=== PATIENT | female | born 2000 | race African-American/Black ===

== ENCOUNTER 2023-04-02 17:04 | Emergency (ER) | payer OTHER ==
[2023-04-02 17:11] VITALS: BP 112/55; PULSE 69; RESP 20; TEMP 98.5; BMI 33.3
== END 2023-04-02 20:40 | disposition home or self-care (01) ==
LOC: JERFT 17:04
DX: B34.9 Viral infection, unspecified (principal); Z20.822 Contact with and (suspected) exposure to COVID-19
CPT/HCPCS: 0241U-QW; 99283-25